=== PATIENT | female | born 1975 | race Caucasian/White ===

== ENCOUNTER 2019-12-07 12:09 | Emergency (ER) | payer OTHER ==
[~2019-12-07] VITALS: Ht 177.8 cm; Wt 90.7 kg
[~2019-12-07 12:09] MED LIST: ALPR0.25 PO; BUPR1FIL5 SL
--- NOTE | 2019-12-07 12:25 | NUR ---
Dr Trivedi at the bedside for MSE.
[2019-12-07 12:39] VITALS: BP 107/71
--- NOTE | 2019-12-07 12:39 | NUR ---
Patient discharged to home in stable condition. Written and verbal after care instructions given. Patient verbalizes understanding of instructions. Stressed follow up or return to ER for worsening s/s.
== END 2019-12-07 12:44 | disposition home or self-care (01) ==
LOC: ER 12:09
DX: L03.113 Cellulitis of right upper limb (principal); S40.862A Insect bite (nonvenomous) of left upper arm, initial encounter; W57.XXXA Bitten or stung by nonvenomous insect and other nonvenomous arthropods, initial encounter; Y92.89 Other specified places as the place of occurrence of the external cause; F41.9 Anxiety disorder, unspecified; G89.29 Other chronic pain; M54.9 Dorsalgia, unspecified; I34.0 Nonrheumatic mitral (valve) insufficiency
CPT/HCPCS: A4663